=== PATIENT | male | born 1970 | race Caucasian/White ===

== ENCOUNTER 2021-07-12 15:07 | Outpatient (RCR) | payer OTHER | END 2021-07-15 | LOC: WSOH | DX: S46.011A Strain of muscle(s) and tendon(s) of the rotator cuff of right shoulder, initial encounter (principal); Y99.0 Civilian activity done for income or pay; E11.9 Type 2 diabetes mellitus without complications; I10 Essential (primary) hypertension; F41.8 Other specified anxiety disorders; K21.9 Gastro-esophageal reflux disease without esophagitis; Z90.49 Acquired absence of other specified parts of digestive tract; Z90.89 Acquired absence of other organs; Z98.1 Arthrodesis status ==

== ENCOUNTER 2021-07-31 13:50 | Outpatient (RCR) | payer OTHER | END 2021-08-12 | disposition home or self-care (01) | LOC: WSOH | DX: S46.011D Strain of muscle(s) and tendon(s) of the rotator cuff of right shoulder, subsequent encounter (principal); M19.011 Primary osteoarthritis, right shoulder; M67.813 Other specified disorders of tendon, right shoulder; Y99.0 Civilian activity done for income or pay; E11.9 Type 2 diabetes mellitus without complications; I10 Essential (primary) hypertension; F41.8 Other specified anxiety disorders; F43.10 Post-traumatic stress disorder, unspecified; K21.9 Gastro-esophageal reflux disease without esophagitis; Z90.49 Acquired absence of other specified parts of digestive tract; Z90.89 Acquired absence of other organs; Z98.1 Arthrodesis status ==

== ENCOUNTER 2021-09-09 15:00 | Outpatient (RCR) | payer OTHER | END 2021-09-12 | disposition home or self-care (01) | LOC: WSOH | DX: S46.011D Strain of muscle(s) and tendon(s) of the rotator cuff of right shoulder, subsequent encounter (principal); M19.011 Primary osteoarthritis, right shoulder; M67.813 Other specified disorders of tendon, right shoulder; E11.9 Type 2 diabetes mellitus without complications; I10 Essential (primary) hypertension; F41.8 Other specified anxiety disorders; F43.10 Post-traumatic stress disorder, unspecified; K21.9 Gastro-esophageal reflux disease without esophagitis; Z90.49 Acquired absence of other specified parts of digestive tract; Z90.89 Acquired absence of other organs; Z98.1 Arthrodesis status; Y99.0 Civilian activity done for income or pay ==

== ENCOUNTER 2022-01-10 22:47 | Emergency (ER) | payer BC ==
[~2022-01-10] VITALS: Ht 165.1 cm; Wt 97.7 kg
[2022-01-10 23:02] VITALS: TEMP 98.1
[2022-01-11] MEDS ORDERED: ZOFRAN ODT4 MG PO (00:25)
[2022-01-11 00:53] VITALS: BP 164/88; PULSE 79
== END 2022-01-11 00:53 | disposition home or self-care (01) ==
LOC: COL.ER 22:47
DX: U07.1 COVID-19 (principal); R11.2 Nausea with vomiting, unspecified; Z73.0 Burn-out
CPT/HCPCS: J1885; J2405; J7030

== ENCOUNTER 2023-10-19 09:13 | Observation (INO) | payer BC ==
[~2023-10-19] VITALS: Ht 165.1 cm; Wt 87.4 kg
[~2023-10-19 09:13] MED LIST: Thiamine 100 MG TAB PO SCH; ZOFRAN ODT4 MG PO
[2023-10-19] MEDS ORDERED: Pantoprazole 40 MG in NS 10 ML IV ONE (09:45)
[2023-10-19 10:02] LABS: BASO # 0.1 K/mm3 (0.0-0.2); BASO % 1.1 % (0.0-2.0); EOS # 0.2 K/mm3 (0.0-0.7); EOS % 2.3 % (0.0-4.0); GRAN # 5.7 K/mm3 (1.4-6.5); GRAN % 65.3 % (42.2-75.2); HEMATOCRIT 42.5 % (42.0-52.0); HEMOGLOBIN 14.9 g/dl (13.5-18.0); LYMPH # 1.9 K/mm3 (1.2-3.4); LYMPH % 21.9 % (20.0-51.0); MEAN CELL VOLUME 86 fl (80.0-100.0); MEAN CORPUSCULAR HEMOGLOBIN 30 pg (27-31); MEAN CORPUSCULAR HGB CONC 35 g/dl (33.0-37.0); MEAN PLATELET VOLUME 10.7 fl (7.4-10.4); MONO # 0.8 K/mm3 (0.1-0.6); MONO % 8.8 % (1.7-9.3); PLATELET COUNT 297 K/mm3 (130-400); RED BLOOD COUNT 4.94 M/mm3 (4.20-5.60); REDCELL DISTRIBUTION WIDTH-CV 12.8 % (11.5-14.5)
[2023-10-19 10:18] LABS: PARTIAL THROMBOPLASTIN TIME 32.3 SECONDS (26.0-37.0)
[2023-10-19 10:19] LABS: INR 1.1 (0.8-3.0); PROTHROMBIN TIME 11.6 SECONDS (9.7-12.8)
[2023-10-19 10:29] LABS: ALANINE AMINOTRANSFERASE 23 U/L (0-55); ALBUMIN 4.1 g/dL (3.5-5.0); ALKALINE PHOSPHATASE 75 U/L (40-150); ANION GAP 12 mmol/L (7-16); AST,SGOT 19 U/L (5-34); BILIRUBIN,TOTAL 0.5 mg/dL (0.2-1.2); BLOOD UREA NITROGEN 16 mg/dL (8-26); CALCIUM 9.4 mg/dL (8.4-10.2); CHLORIDE 104 mEq/L (98-107); CREATININE, serum 1.01 mg/dL (0.72-1.25); GLUCOSE 141 mg/dL (70-99); LIPASE 72 U/L (8-78); POTASSIUM 3.5 mEq/L (3.5-4.5); SODIUM 139 mEq/L (136-145); TOTAL PROTEIN 7.6 g/dl (6.2-8.1)
[2023-10-19 10:39] LABS: TROPONIN-I < 0.010 ng/mL (0.00-0.033)
[2023-10-19] MEDS ORDERED: LEXAPRO20 MG PO (11:01)
[2023-10-19] MEDS ORDERED: RESTORIL30 MG PO (11:01)
[2023-10-19] MEDS ORDERED: PRIL40 PO (11:02)
[2023-10-19] MEDS ORDERED: PRINIVIL40 MG PO (11:02)
[2023-10-19] MEDS ORDERED: MINIPRESS2 MG PO (11:02)
[2023-10-19] MEDS ORDERED: LORazepam 2 MG/ML 1 ML VIAL IV PRN (12:15)
[2023-10-19] MEDS ORDERED: LR 1,000 ML IV SCH (12:15)
[2023-10-19] MEDS ORDERED: Acetaminophen 325 MG TAB PO PRN (12:15)
[2023-10-19] MEDS ORDERED: Ondansetron 4 MG/2 ML VIAL IV PRN (12:15)
[2023-10-19] MEDS ORDERED: Dextrose (Glucose) 15 GM (4 x 3.75 GM) Chewable TABLET PACK PO PRN (13:00)
[2023-10-19] MEDS ORDERED: Dextrose 50% Water 25 GM/50 ML SYRINGE IV PRN (13:00)
[2023-10-19] MEDS ORDERED: Glucagon 1 MG VIAL IM PRN (13:00)
[2023-10-19 14:00] VITALS: BP 180/101; PULSE 64; TEMP 98.4
--- NOTE | 2023-10-19 14:20 | NUR ---
PTS BP 180/101 UPON ADMISSION TO THE FLOOR. PAVAN RAZA NOTIFITED
[2023-10-19] MEDS ORDERED: hydrALAZINE 20 MG/ML 1 ML VIAL IV PRN (14:30)
[2023-10-19] MEDS ORDERED: Lidocaine PF 2% (20 MG/ML) 5 ML VIAL ONE (15:39)
[2023-10-19] MEDS ORDERED: Insulin Lispro (HumaLOG) SQ SCH (16:00)
[2023-10-19 16:05] VITALS: BP 145/92; PULSE 67; TEMP 98.5
--- NOTE | 2023-10-19 16:05 | NUR ---
PT BACK FROM ENDO, AT BEDSIDE. PT DENIES PAIN OR NEEDS AT THIS TIME. WATER CUP GIVEN. BED IN LOWEST POSITION, CALL LIGHT IN REACH
[2023-10-19 16:30] VITALS: BP 169/93; PULSE 68; TEMP 98.1
[2023-10-19] MEDS ORDERED: Multivitamin TAB PO SCH (17:00)
[2023-10-19 20:00] VITALS: BP 195/119; PULSE 64; TEMP 98.3
[2023-10-19] MEDS ORDERED: Escitalopram 10 MG TAB PO SCH (21:00)
[2023-10-19] MEDS ORDERED: Pantoprazole 40 MG in NS 10 ML IV SCH (21:00)
[2023-10-19] MEDS ORDERED: Prazosin 1 MG CAP PO SCH (21:00)
[2023-10-19] MEDS ORDERED: Lisinopril 20 MG TAB PO SCH (21:00)
--- NOTE | 2023-10-19 21:56 | NUR ---
Patient's blood pressure 195/119 and reporting headache. PRN hydralazine 10 mg IV given. Attempted to call hospitalist, will try again later.
--- NOTE | 2023-10-19 22:37 | NUR ---
Shift assessment complete. Patient complaining of headache and is given tylenol. Denies any chest pain or shortness of breath. Alert and oriented x 4. Call light is within reach. Bed locked and in low position.
[2023-10-19 23:02] VITALS: BP 161/86; PULSE 83; TEMP 98
--- NOTE | 2023-10-19 23:15 | NUR ---
Blood pressure after hydralazine and scheduled lisinopril is 161/86. Patient states headache is getting better but is reporting an increase in his nausea, so IV ofran is given
[2023-10-20] VITALS: BP 161/80
[2023-10-20 01:23] VITALS: BP 116/68; PULSE 97; TEMP 97.7
[2023-10-20 04:27] VITALS: BP 116/68; PULSE 84; TEMP 98.1
[2023-10-20 06:04] VITALS: BP 125/73; PULSE 81; TEMP 98
[2023-10-20 06:40] LABS: BASO # 0.1 K/mm3 (0.0-0.2); BASO % 1.2 % (0.0-2.0); EOS # 0.2 K/mm3 (0.0-0.7); GRAN # 5.1 K/mm3 (1.4-6.5); GRAN % 57.8 % (42.2-75.2); HEMATOCRIT 40.4 % (42.0-52.0); LYMPH # 2.5 K/mm3 (1.2-3.4); MEAN CELL VOLUME 85 fl (80.0-100.0); MEAN CORPUSCULAR HEMOGLOBIN 30 pg (27-31); MEAN CORPUSCULAR HGB CONC 35 g/dl (33.0-37.0); MEAN PLATELET VOLUME 11.3 fl (7.4-10.4); MONO # 0.9 K/mm3 (0.1-0.6); MONO % 10.5 % (1.7-9.3); PLATELET COUNT 283 K/mm3 (130-400); RED BLOOD COUNT 4.73 M/mm3 (4.20-5.60); REDCELL DISTRIBUTION WIDTH-CV 12.9 % (11.5-14.5)
[2023-10-20 07:05] LABS: CALCIUM 8.9 mg/dL (8.4-10.2); CREATININE, serum 1.16 mg/dL (0.72-1.25); POTASSIUM 3.4 mEq/L (3.5-4.5)
[2023-10-20 07:33] VITALS: BP 132/71; PULSE 90; TEMP 98.1
[2023-10-20] MEDS ORDERED: FOLIC ACID 11 MG/TA1 PO (08:29)
[2023-10-20] MEDS ORDERED: THIAMINE 1100 MG/TAB PO (08:29)
[2023-10-20] MEDS ORDERED: DUO-KAPS1 CAP PO (08:29)
[2023-10-20] MEDS ORDERED: Folic Acid 1 MG TAB PO SCH (09:00)
--- NOTE | 2023-10-20 09:37 | NUR ---
District Manager In Training met with patient who is set to discharge home today. Patient lives in [place] with his , Maryse (ph#[phone]) and sees Dr. Zarate for primary care. Patient gets his medications at [facility] in [place]. Patient does not use any DME and is independent with [facility]. Patient does not have DPOA-HC but stated he is going to work on one soon. Patient did not want to complete one during this hospital stay. Discharge Plan: Home
--- NOTE | 2023-10-20 10:53 | NUR ---
Initial visit; Patient thanked Floater Operator for looking in on him and offering God's blessings and wished him well.
--- NOTE | 2023-10-20 11:06 | NUR ---
Patient alert and oriented x4. Denies pain or discomfort. BP stable following hypertension overnight. Discharge orders obtained. Paperwork discussed including follow-up appointments, new medications, and education packets. Discussed EGD recovery. Patient verbalized understanding. IV discontinued to right AC with no complications. Patient escorted out by staff and family via ambulation. No concerns voiced at time of discharge.
== END 2023-10-20 09:30 | disposition home or self-care (01) ==
LOC: COL.ER 09:13 → MEDICAL 11:26
PROVIDERS: Emergency Medicine; Physician Assistant; ADMIT Hospitalist
DX: K22.6 Gastro-esophageal laceration-hemorrhage syndrome (principal); E11.9 Type 2 diabetes mellitus without complications; F32.A Depression, unspecified; I10 Essential (primary) hypertension; F10.90 Alcohol use, unspecified, uncomplicated; K21.9 Gastro-esophageal reflux disease without esophagitis; G47.00 Insomnia, unspecified; F17.290 Nicotine dependence, other tobacco product, uncomplicated; Y90.9 Presence of alcohol in blood, level not specified
CPT/HCPCS: C9113; G0378; J0360; J1815; J2405; J2704; J7120